=== PATIENT | female | born 1945 | race Two or more races ===

== ENCOUNTER 2018-10-07 05:45 | Day surgery (SDC) | payer OTHER ==
[~2018-10-07 05:45] MED LIST: ATORVASTATIN
[2018-10-07] MEDS ORDERED: MACROBID 100 M100 MG PO (09:14)
[2018-10-07] MEDS ORDERED: ULTRACET PO (09:16)
== END 2018-10-07 10:35 | disposition home or self-care (01) ==
LOC: CIR.AMB 05:45
DX: N81.3 Complete uterovaginal prolapse (principal)